=== PATIENT | female | born 1960 | race Caucasian/White ===

== ENCOUNTER 2018-12-31 05:21 | Inpatient (IN) | payer OTHER ==
[2018-12-31] MEDS ORDERED: CLINDAMYCIN 900 MG/D5W (PMX) 50 ML IVPB (06:30)
[2018-12-31] MEDS ORDERED: ROCURONIUM 50 MG INJ (06:30)
[2018-12-31] MEDS ORDERED: LIDOCAINE 2% (SDV) 5 ML INJ (06:30)
[2018-12-31] MEDS ORDERED: HYDROmorphONE 2 MG/ML SYG (06:30)
[2018-12-31] MEDS ORDERED: PROPOFOL 20 ML ×2 (06:30→07:47)
[2018-12-31] MEDS ORDERED: MIDAZOLAM 1 MG/ML 2 ML INJ (06:30)
[2018-12-31] MEDS: SOD CHLORIDE 0.9% 1,000 ML IV (06:40)
[2018-12-31] MEDS ORDERED: DESFLURANE 15 MIN (07:15)
[2018-12-31] MEDS ORDERED: LIDOCAINE 4% (MPF) 5 ML INJ (07:17)
[2018-12-31] MEDS ORDERED: METOCLOPRAMIDE 10 MG INJ (07:39)
[2018-12-31] MEDS ORDERED: DEXAMETHASONE 4 MG/ML 5 ML INJ (07:39)
[2018-12-31] MEDS ORDERED: FAMOTIDINE 20 MG INJ (07:39)
[2018-12-31] MEDS ORDERED: ONDANSETRON 4 MG INJ (07:39)
[2018-12-31] MEDS ORDERED: MAGNESIUM SULFATE 1 GM/D5W 100 ML (07:46)
[2018-12-31] MEDS ORDERED: LABETALOL HCL 20MG INJ IV (08:30)
[2018-12-31] MEDS ORDERED: MEPERIDINE 25 MG INJ IV (08:30)
[2018-12-31] MEDS ORDERED: hydrALAzine 20 MG INJ IV (08:30)
[2018-12-31] MEDS ORDERED: ONDANSETRON 4 MG INJ IV ×2 (08:30→09:30)
[2018-12-31] MEDS ORDERED: NALOXONE (0.4 MG/ML) INJ IV (08:30)
[2018-12-31] MEDS ORDERED: ACETAMINOPHEN 500 MG TAB PO (08:30)
[2018-12-31] MEDS ORDERED: SUGAMMADEX SODIUM 200 MG/2 ML VIAL IV (08:35)
[2018-12-31] MEDS ORDERED: KETOROLAC 30 MG INJ (08:36)
[2018-12-31] MEDS: HYDROmorphONE 0.2 MG/ML PCA IV (09:27)
[2018-12-31] MEDS ORDERED: HYDROmorphONE 1 MG/5 ML IV SYRINGE IV ×4 (09:30→10:00)
[2018-12-31] MEDS: LACTATED RINGER'S 1,000 ML IV (10:09)
[2018-12-31] MEDS: METOCLOPRAMIDE 10 MG INJ IV (10:11)
[2018-12-31] MEDS: DEXTROSE 5%-LR 1,000 ML IV ×2 (11:08→18:53)
[2018-12-31] MEDS ORDERED: GLUCOSE GEL 15 GRAM TUBE PO ×2 (12:30)
[2018-12-31] MEDS ORDERED: DEXTROSE 50% 50 ML SYRINGE IV ×2 (12:30)
[2018-12-31] MEDS ORDERED: GLUCOSE GEL 15 GRAM TUBE BUCCAL (12:30)
[2018-12-31] MEDS ORDERED: GLUCAGON 1 MG INJ IM (12:30)
[2018-12-31] MEDS: INSULIN ASPART [NOVOLOG] 3 ML PEN SC ×3 (15:07→20:51)
[2019-01-01] MEDS: INSULIN ASPART [NOVOLOG] 3 ML PEN SC ×6 (00:58→21:00)
[2019-01-01] MEDS ORDERED: ACCU-CHEK XX (02:00)
[2019-01-01] MEDS: DEXTROSE 5%-LR 1,000 ML IV ×3 (03:31→21:52)
[2019-01-01] MEDS: BISACODYL 10 MG SUPP PR ×2 (05:25→17:33)
[2019-01-01] MEDS: MAGNESIUM HYDROXIDE 30ML CUP PO ×2 (05:25→17:33)
[2019-01-01 05:40] LABS: ADD MAN DIFF? NO
[2019-01-01 05:47] LABS: BASOPHILS % 0.1 % (0.0-2.0); HEMATOCRIT 34.4 % (37.0-47.0); LYMPHOCYTES # 0.7 10^3/ul (0.8-2.9); LYMPHOCYTES % 6.2 % (15.0-51.0); MEAN CORPUSCULAR HEMOGLOBIN 27.6 pg (29.0-33.0); MEAN CORPUSCULAR VOLUME 86.4 fl (82.0-101.0); MEAN PLATELET VOLUME 10.8 fl (7.4-10.4); MONOCYTE # 0.8 10^3/ul (0.3-0.9); MONOCYTES % 6.6 % (0.0-11.0); NEUTROPHIL # 10.5 10^3/ul (1.6-7.5); NEUTROPHILS % 86.8 % (39.0-77.0); PLATELET COUNT 224 10^3/UL (140-415); RED BLOOD COUNT 3.98 10^6/ul (4.20-5.40); RED CELL DISTRIBUTION WIDTH 14.2 % (11.5-14.5)
[2019-01-01 06:36] LABS: ALANINE AMINOTRANSFERASE 22 IU/L (13-69); ALBUMIN 3.4 g/dl (3.3-4.9); ALBUMIN/GLOBULIN RATIO 1.17; ALKALINE PHOSPHATASE 71 IU/L (42-121); ANION GAP 9 (5-13); ASPARTATE AMINO TRANSFERASE 19 IU/L (15-46); BILIRUBIN,INDIRECT 0.5 mg/dl (0-1.1); BILIRUBIN,TOTAL 0.5 mg/dl (0.2-1.3); BLOOD UREA NITROGEN 11 mg/dl (7-20); CALCIUM 8.8 mg/dl (8.4-10.2); CARBON DIOXIDE 26 mmol/L (21-31); CHLORIDE 106 mmol/L (97-110); CREATININE 0.74 mg/dl (0.44-1.00); Estimated GFR > 60 mL/min (>60); GLUCOSE 159 mg/dl (70-220); POTASSIUM 4.8 mmol/L (3.5-5.1); SODIUM 141 mmol/L (135-144); TOTAL PROTEIN 6.3 g/dl (6.1-8.1)
[2019-01-01] MEDS ORDERED: HYDROmorphONE 0.5 MG/0.5 ML SYG IV (08:30)
[2019-01-01] MEDS ORDERED: LACTULOSE 30ML CUP PO (13:00)
[2019-01-01] MEDS: OXYCODONE/ACETAMINOPHEN (5/325) TAB PO ×2 (15:07→20:52)
[2019-01-01] MEDS ORDERED: IBUPROFEN 800 MG TAB PO (18:00)
[2019-01-02] MEDS: INSULIN ASPART [NOVOLOG] 3 ML PEN SC ×5 (01:00→20:19)
[2019-01-02] MEDS: OXYCODONE/ACETAMINOPHEN (5/325) TAB PO ×4 (02:34→17:48)
[2019-01-02 05:15] LABS: ADD MAN DIFF? NO
[2019-01-02 05:23] LABS: BASOPHILS % 0.3 % (0.0-2.0); EOSINOPHILS # 0.1 10^3/ul (0.0-0.5); EOSINOPHILS % 0.8 % (0.0-7.0); HEMATOCRIT 32.8 % (37.0-47.0); HEMOGLOBIN 10.2 g/dl (12.0-16.0); LYMPHOCYTES # 1.6 10^3/ul (0.8-2.9); LYMPHOCYTES % 13.4 % (15.0-51.0); MEAN CORPUSCULAR HEMOGLOBIN 27.9 pg (29.0-33.0); MEAN CORPUSCULAR HGB CONC 31.1 g/dl (32.0-37.0); MEAN CORPUSCULAR VOLUME 89.9 fl (82.0-101.0); MEAN PLATELET VOLUME 10.6 fl (7.4-10.4); MONOCYTE # 1.1 10^3/ul (0.3-0.9); MONOCYTES % 9.4 % (0.0-11.0); NEUTROPHIL # 9.1 10^3/ul (1.6-7.5); NEUTROPHILS % 75.7 % (39.0-77.0); PLATELET COUNT 184 10^3/UL (140-415); RED BLOOD COUNT 3.65 10^6/ul (4.20-5.40); RED CELL DISTRIBUTION WIDTH 14.3 % (11.5-14.5)
[2019-01-02] MEDS: DEXTROSE 5%-LR 1,000 ML IV ×2 (05:56→12:59)
[2019-01-02] MEDS: MAGNESIUM HYDROXIDE 30ML CUP PO (08:17)
[2019-01-02] MEDS: BISACODYL 10 MG SUPP PR (08:17)
[2019-01-02] MEDS: hydrALAzine 20 MG INJ IV (08:18)
[2019-01-02] MEDS: METOPROLOL 25 MG TAB PO ×2 (08:59→20:16)
[2019-01-02] MEDS: LOSARTAN 50 MG TAB PO (09:00)
== END 2019-01-02 20:54 | disposition home or self-care (01) | DRG 743 ==
LOC: REC 05:21 → MS1 10:34
PROVIDERS: Obstetrics & Gynecology
PROC: 0UT90ZZ Resection of Uterus, Open Approach (ICD-10-PCS; principal; 2018-12-31 07:20)
PROC: 0UT20ZZ Resection of Bilateral Ovaries, Open Approach (ICD-10-PCS; 2018-12-31 07:20)
PROC: 0USG0ZZ Reposition Vagina, Open Approach (ICD-10-PCS; 2018-12-31 07:20)
DX: N81.89 Other female genital prolapse (principal); E11.42 Type 2 diabetes mellitus with diabetic polyneuropathy; N81.2 Incomplete uterovaginal prolapse; I10 Essential (primary) hypertension; E78.5 Hyperlipidemia, unspecified; E11.9 Type 2 diabetes mellitus without complications; K21.9 Gastro-esophageal reflux disease without esophagitis; D25.1 Intramural leiomyoma of uterus; D25.2 Subserosal leiomyoma of uterus; Z79.4 Long term (current) use of insulin
CPT/HCPCS: 80053; 82962; 84702; 85025; 86850; 86900; 86901; 87086; 88307

== ENCOUNTER 2019-01-05 16:46 | Inpatient (IN) | payer OTHER ==
[2019-01-05 17:20] LABS: ADD MAN DIFF? NO
[2019-01-05] MEDS: SODIUM CHLORIDE 0.9% 1L BAG IV* (17:23)
[2019-01-05] MEDS: LEVOFLOXACIN 500MG/D5W (PMX) 100 ML IVPB (17:24)
[2019-01-05 17:26] LABS: WHITE BLOOD COUNT 21.6 10^3/ul (4.8-10.8)
[2019-01-05 17:26] LABS: ABNORMAL IP MESSAGE 1; BASOPHIL # 0.1 10^3/ul (0.0-0.1); BASOPHILS % 0.2 % (0.0-2.0); EOSINOPHILS # 0.2 10^3/ul (0.0-0.5); EOSINOPHILS % 0.7 % (0.0-7.0); HEMOGLOBIN 11.8 g/dl (12.0-16.0); LYMPHOCYTES # 1.4 10^3/ul (0.8-2.9); LYMPHOCYTES % 6.7 % (15.0-51.0); MEAN CORPUSCULAR HEMOGLOBIN 28.2 pg (29.0-33.0); MEAN CORPUSCULAR HGB CONC 31.9 g/dl (32.0-37.0); MEAN CORPUSCULAR VOLUME 88.3 fl (82.0-101.0); MEAN PLATELET VOLUME 10.9 fl (7.4-10.4); MONOCYTE # 1.7 10^3/ul (0.3-0.9); MONOCYTES % 7.7 % (0.0-11.0); NEUTROPHIL # 18.2 10^3/ul (1.6-7.5); NEUTROPHILS % 83.9 % (39.0-77.0); PLATELET COUNT 345 10^3/UL (140-415); RED BLOOD COUNT 4.19 10^6/ul (4.20-5.40); RED CELL DISTRIBUTION WIDTH 14.5 % (11.5-14.5)
[2019-01-05 17:32] LABS: POSITIVE DIFF @See below
[2019-01-05 17:34] LABS: ADD UMIC YES; UR ASCORBIC ACID NEGATIVE (NEGATIVE); UR BACTERIA FEW /HPF (NONE SEEN); UR BILIRUBIN (Dip) NEGATIVE (NEGATIVE); UR BLOOD (Dip) 1+ mg/dL (NEGATIVE); UR CLARITY CLEAR (CLEAR); UR COLOR AMBER (YELLOW); UR GLUCOSE (Dip) NEGATIVE (NEGATIVE); UR KETONES (Dip) NEGATIVE (NEGATIVE); UR LEUKOCYTE ESTERASE (Dip) NEGATIVE Leu/ul (NEGATIVE); UR MUCUS FEW /HPF (NONE SEEN); UR NITRITE (Dip) NEGATIVE (NEGATIVE); UR RBC 4 /HPF (0-5); UR SPECIFIC GRAVITY (Dip) 1.028 (1.003-1.030); UR SQUAMOUS EPITHELIAL CELL FEW /HPF (FEW); UR TOTAL PROTEIN (Dip) 1+ mg/dl (NEGATIVE); UR UROBILINOGEN (Dip) NEGATIVE (NEGATIVE); UR WBC 3 /HPF (0-5)
[2019-01-05 17:45] LABS: ALANINE AMINOTRANSFERASE 20 IU/L (13-69); ALBUMIN 3.7 g/dl (3.3-4.9); ALBUMIN/GLOBULIN RATIO 0.94; ALKALINE PHOSPHATASE 184 IU/L (42-121); ANION GAP 13 (5-13); ASPARTATE AMINO TRANSFERASE 27 IU/L (15-46); BILIRUBIN,INDIRECT 0.9 mg/dl (0-1.1); BILIRUBIN,TOTAL 0.9 mg/dl (0.2-1.3); BLOOD UREA NITROGEN 16 mg/dl (7-20); CARBON DIOXIDE 24 mmol/L (21-31); CHLORIDE 102 mmol/L (97-110); CREATININE 0.89 mg/dl (0.44-1.00); Estimated GFR > 60 mL/min (>60); GLUCOSE 164 mg/dl (70-220); POTASSIUM 3.4 mmol/L (3.5-5.1); SODIUM 139 mmol/L (135-144); TOTAL PROTEIN 7.6 g/dl (6.1-8.1)
[2019-01-05 17:50] LABS: INR 1.14; PROTIME 14.7 Sec (11.9-14.9); PT RATIO 1.1
[2019-01-05] MEDS: ACETAMINOPHEN 325 MG TAB PO (17:53)
[2019-01-05 17:56] LABS: TROPONIN-I < 0.012 ng/ml (0.000-0.120)
[2019-01-05] MEDS: metroNIDAZOLE 500 MG/NS (PMX) 100 ML IVPB (18:10)
[2019-01-05 18:12] LABS: D-DIMER 5604.74 ng/ml (<460)
[2019-01-05] MEDS: IOHEXOL 300MG/ML 30 ML BTL (18:36)
[2019-01-05] MEDS: VANCOMYCIN 1 GM (PMX) 250 ML IVPB (19:00)
[2019-01-05] MEDS: IOHEXOL 300MG/ML 150 ML BTL (19:11)
[2019-01-05] MEDS: SOD CHLORIDE 0.9% 100 ML (19:11)
[2019-01-05] MEDS: LEVOFLOXACIN 250MG/D5W (PMX) 50 ML IVPB (19:30)
[2019-01-05] MEDS ORDERED: ONDANSETRON 4 MG INJ IV ×2 (19:30→22:00)
[2019-01-05 20:04] LABS: LIPASE 49 U/L (23-300)
[2019-01-05] MEDS: KETOROLAC 15 MG INJ IV (21:04)
[2019-01-05 21:58] LABS: LACTIC ACID 1.2 mmol/L (0.5-2.0)
[2019-01-05] MEDS ORDERED: NACL 0.9% 3 ML SYG IV (22:00)
[2019-01-05] MEDS ORDERED: DOCUSATE SODIUM 100 MG CAP PO (22:00)
[2019-01-05] MEDS ORDERED: VANCOMYCIN IV PER PHARMACY XX (22:00)
[2019-01-05] MEDS ORDERED: DEXTROSE 50% 50 ML SYRINGE IV ×2 (22:30)
[2019-01-05] MEDS ORDERED: GLUCOSE GEL 15 GRAM TUBE BUCCAL (22:30)
[2019-01-05] MEDS ORDERED: GLUCAGON 1 MG INJ IM (22:30)
[2019-01-05] MEDS ORDERED: GLUCOSE GEL 15 GRAM TUBE PO ×2 (22:30)
[2019-01-05] MEDS: SOD CHLORIDE 0.9% 500 ML IV (22:36)
[2019-01-05] MEDS: MEROPENEM 1 GM/50ML(PMX) 50 ML IVPB (22:36)
[2019-01-05] MEDS: SOD CHLORIDE 0.9% 1,000 ML IV (22:36)
[2019-01-06] MEDS: VANCOMYCIN 1 GM 250 ML IVPB ×2 (01:00→12:09)
[2019-01-06] MEDS: ACCU-CHEK XX (02:00)
[2019-01-06] MEDS: ACETAMINOPHEN 325 MG TAB PO ×2 (02:37→19:05)
[2019-01-06] MEDS: PANTOPRAZOLE (EC) 40 MG TAB PO (05:49)
[2019-01-06 05:51] LABS: ADD MAN DIFF? NO
[2019-01-06 05:58] LABS: BASOPHILS % 0.2 % (0.0-2.0); EOSINOPHILS # 0.2 10^3/ul (0.0-0.5); EOSINOPHILS % 1.5 % (0.0-7.0); HEMATOCRIT 28.9 % (37.0-47.0); LYMPHOCYTES # 1.1 10^3/ul (0.8-2.9); LYMPHOCYTES % 9.9 % (15.0-51.0); MEAN CORPUSCULAR HEMOGLOBIN 27.1 pg (29.0-33.0); MEAN CORPUSCULAR HGB CONC 31.1 g/dl (32.0-37.0); MEAN PLATELET VOLUME 10.6 fl (7.4-10.4); MONOCYTES % 9.2 % (0.0-11.0); NEUTROPHIL # 8.6 10^3/ul (1.6-7.5); NEUTROPHILS % 78.3 % (39.0-77.0); PLATELET COUNT 190 10^3/UL (140-415); RED BLOOD COUNT 3.32 10^6/ul (4.20-5.40); RED CELL DISTRIBUTION WIDTH 14.6 % (11.5-14.5)
[2019-01-06 06:45] LABS: ALANINE AMINOTRANSFERASE 26 IU/L (13-69); ALBUMIN 2.6 g/dl (3.3-4.9); ALBUMIN/GLOBULIN RATIO 0.86; ALKALINE PHOSPHATASE 123 IU/L (42-121); ANION GAP 9 (5-13); ASPARTATE AMINO TRANSFERASE 12 IU/L (15-46); BILIRUBIN,INDIRECT 0.5 mg/dl (0-1.1); BILIRUBIN,TOTAL 0.5 mg/dl (0.2-1.3); BLOOD UREA NITROGEN 13 mg/dl (7-20); CARBON DIOXIDE 25 mmol/L (21-31); CHLORIDE 107 mmol/L (97-110); Estimated GFR > 60 mL/min (>60); GLUCOSE 103 mg/dl (70-220); MAGNESIUM 1.9 mg/dl (1.7-2.5); SODIUM 141 mmol/L (135-144); TOTAL PROTEIN 5.6 g/dl (6.1-8.1)
[2019-01-06 07:25] LABS: HEMOGLOBIN A1C 5.6 % (0-5.9)
[2019-01-06] MEDS: INSULIN ASPART [NOVOLOG] 3 ML PEN SC ×4 (08:00→21:00)
[2019-01-06] MEDS: MEROPENEM 1 GM/50ML(PMX) 50 ML IVPB ×2 (08:06→21:23)
[2019-01-06] MEDS: SOD CHLORIDE 0.9% 1,000 ML IV ×2 (08:06→17:34)
[2019-01-06] MEDS ORDERED: KETOROLAC 30 MG INJ IV (11:00)
[2019-01-06] MEDS: POTASSIUM CHLORIDE (SR) 20 MEQ TAB PO (12:09)
[2019-01-06] MEDS: METOPROLOL 25 MG TAB PO ×2 (12:10→21:23)
[2019-01-06] MEDS: ASPIRIN (EC) 81 MG TAB PO (12:10)
[2019-01-06] MEDS: LOSARTAN 50 MG TAB PO (12:11)
[2019-01-06] MEDS: traMADol 50 MG TAB NGT (12:22)
[2019-01-06] MEDS: ATORVASTATIN 20 MG TAB PO (21:23)
[2019-01-07] MEDS: SOD CHLORIDE 0.9% 1,000 ML IV ×3 (00:42→17:44)
[2019-01-07] MEDS: VANCOMYCIN 1 GM 250 ML IVPB ×2 (00:42→12:13)
[2019-01-07] MEDS: ACCU-CHEK XX (02:00)
[2019-01-07 05:43] LABS: ADD MAN DIFF? NO
[2019-01-07 05:48] LABS: BASOPHILS % 0.2 % (0.0-2.0); EOSINOPHILS # 0.4 10^3/ul (0.0-0.5); EOSINOPHILS % 3.9 % (0.0-7.0); HEMATOCRIT 28.7 % (37.0-47.0); HEMOGLOBIN 9.1 g/dl (12.0-16.0); LYMPHOCYTES % 11.2 % (15.0-51.0); MEAN CORPUSCULAR HEMOGLOBIN 27.3 pg (29.0-33.0); MEAN CORPUSCULAR HGB CONC 31.7 g/dl (32.0-37.0); MEAN CORPUSCULAR VOLUME 86.2 fl (82.0-101.0); MEAN PLATELET VOLUME 10.3 fl (7.4-10.4); MONOCYTE # 0.7 10^3/ul (0.3-0.9); NEUTROPHIL # 6.8 10^3/ul (1.6-7.5); NEUTROPHILS % 75.8 % (39.0-77.0); PLATELET COUNT 210 10^3/UL (140-415); RED BLOOD COUNT 3.33 10^6/ul (4.20-5.40); RED CELL DISTRIBUTION WIDTH 14.6 % (11.5-14.5)
[2019-01-07 06:10] LABS: PHOSPHORUS 3.4 mg/dl (2.5-4.9)
[2019-01-07 06:16] LABS: ALANINE AMINOTRANSFERASE 22 IU/L (13-69); ALBUMIN 2.6 g/dl (3.3-4.9); ALBUMIN/GLOBULIN RATIO 0.89; ALKALINE PHOSPHATASE 106 IU/L (42-121); ANION GAP 7 (5-13); ASPARTATE AMINO TRANSFERASE 12 IU/L (15-46); BILIRUBIN,INDIRECT 0.5 mg/dl (0-1.1); BILIRUBIN,TOTAL 0.5 mg/dl (0.2-1.3); BLOOD UREA NITROGEN 8 mg/dl (7-20); CALCIUM 8.2 mg/dl (8.4-10.2); CARBON DIOXIDE 25 mmol/L (21-31); CHLORIDE 108 mmol/L (97-110); CREATININE 0.67 mg/dl (0.44-1.00); Estimated GFR > 60 mL/min (>60); GLUCOSE 103 mg/dl (70-220); POTASSIUM 3.2 mmol/L (3.5-5.1); SODIUM 140 mmol/L (135-144); TOTAL PROTEIN 5.5 g/dl (6.1-8.1)
[2019-01-07] MEDS: PANTOPRAZOLE (EC) 40 MG TAB PO (06:44)
[2019-01-07] MEDS: INSULIN ASPART [NOVOLOG] 3 ML PEN SC ×4 (07:40→20:51)
[2019-01-07] MEDS: ACETAMINOPHEN 325 MG TAB PO (08:10)
[2019-01-07] MEDS: MEROPENEM 1 GM/50ML(PMX) 50 ML IVPB ×2 (08:12→20:46)
[2019-01-07] MEDS: METOPROLOL 25 MG TAB PO ×2 (08:14→20:46)
[2019-01-07] MEDS: ASPIRIN (EC) 81 MG TAB PO (08:14)
[2019-01-07] MEDS: LOSARTAN 50 MG TAB PO (08:15)
[2019-01-07] MEDS: POTASSIUM CHLORIDE (SR) 20 MEQ TAB PO (11:39)
[2019-01-07 11:47] LABS: VANCOMYCIN,TROUGH 7.5 ug/ml (10.0-20.0)
[2019-01-07] MEDS: IBUPROFEN 400 MG TAB PO ×2 (13:33→19:01)
[2019-01-07] MEDS: hydrALAzine 20 MG INJ IV (18:59)
[2019-01-07] MEDS: ATORVASTATIN 20 MG TAB PO (20:45)
[2019-01-07] MEDS ORDERED: VANCOMYCIN HCL 1.25 GM in SOD CHLORIDE 0.9% 250 ML IVPB (21:00)
[2019-01-08] MEDS: ACCU-CHEK XX (02:00)
[2019-01-08] MEDS: hydrALAzine 20 MG INJ IV ×2 (02:19→14:45)
[2019-01-08] MEDS: IBUPROFEN 400 MG TAB PO ×3 (04:07→17:26)
[2019-01-08 05:48] LABS: ADD MAN DIFF? NO
[2019-01-08 05:52] LABS: BASOPHILS % 0.5 % (0.0-2.0); EOSINOPHILS # 0.3 10^3/ul (0.0-0.5); EOSINOPHILS % 4.3 % (0.0-7.0); HEMATOCRIT 30.1 % (37.0-47.0); HEMOGLOBIN 9.6 g/dl (12.0-16.0); LYMPHOCYTES # 0.8 10^3/ul (0.8-2.9); LYMPHOCYTES % 13.4 % (15.0-51.0); MEAN CORPUSCULAR HEMOGLOBIN 27.5 pg (29.0-33.0); MEAN CORPUSCULAR HGB CONC 31.9 g/dl (32.0-37.0); MEAN CORPUSCULAR VOLUME 86.2 fl (82.0-101.0); MEAN PLATELET VOLUME 10.4 fl (7.4-10.4); MONOCYTE # 0.5 10^3/ul (0.3-0.9); MONOCYTES % 8.6 % (0.0-11.0); NEUTROPHIL # 4.5 10^3/ul (1.6-7.5); PLATELET COUNT 228 10^3/UL (140-415); RED BLOOD COUNT 3.49 10^6/ul (4.20-5.40); RED CELL DISTRIBUTION WIDTH 14.5 % (11.5-14.5)
[2019-01-08 05:52] LABS: WHITE BLOOD COUNT 6.3 10^3/ul (4.8-10.8)
[2019-01-08] MEDS: PANTOPRAZOLE (EC) 40 MG TAB PO (05:57)
[2019-01-08 06:48] LABS: ALANINE AMINOTRANSFERASE 21 IU/L (13-69); ALBUMIN 2.7 g/dl (3.3-4.9); ALBUMIN/GLOBULIN RATIO 0.81; ALKALINE PHOSPHATASE 132 IU/L (42-121); ANION GAP 9 (5-13); ASPARTATE AMINO TRANSFERASE 16 IU/L (15-46); BILIRUBIN,INDIRECT 0.4 mg/dl (0-1.1); BILIRUBIN,TOTAL 0.4 mg/dl (0.2-1.3); BLOOD UREA NITROGEN 9 mg/dl (7-20); CALCIUM 8.2 mg/dl (8.4-10.2); CARBON DIOXIDE 24 mmol/L (21-31); CHLORIDE 111 mmol/L (97-110); CREATININE 0.64 mg/dl (0.44-1.00); Estimated GFR > 60 mL/min (>60); GLUCOSE 119 mg/dl (70-220); POTASSIUM 3.1 mmol/L (3.5-5.1); SODIUM 144 mmol/L (135-144)
[2019-01-08] MEDS: INSULIN ASPART [NOVOLOG] 3 ML PEN SC ×4 (08:00→20:26)
[2019-01-08] MEDS: ASPIRIN (EC) 81 MG TAB PO (08:04)
[2019-01-08] MEDS: METOPROLOL 25 MG TAB PO ×2 (08:05→20:19)
[2019-01-08] MEDS: LOSARTAN 50 MG TAB PO ×2 (08:05→20:19)
[2019-01-08] MEDS: MEROPENEM 1 GM/50ML(PMX) 50 ML IVPB ×2 (08:49→20:20)
[2019-01-08] MEDS: SOD CHLORIDE 0.9% 1,000 ML IV (10:20)
[2019-01-08] MEDS: IOHEXOL 300MG/ML 150 ML BTL (10:22)
[2019-01-08] MEDS: SOD CHLORIDE 0.9% 100 ML (10:22)
[2019-01-08] MEDS: POTASSIUM CHLORIDE (SR) 20 MEQ TAB PO (11:18)
[2019-01-08] MEDS: ACETAMINOPHEN 325 MG TAB PO (12:59)
[2019-01-08] MEDS: ATORVASTATIN 20 MG TAB PO (20:18)
[2019-01-08] MEDS: ZOLPIDEM 5 MG TAB PO (22:12)
[2019-01-09] MEDS: ACCU-CHEK XX (01:23)
[2019-01-09] MEDS: IBUPROFEN 400 MG TAB PO ×2 (02:50→09:18)
[2019-01-09 05:03] LABS: ADD MAN DIFF? NO
[2019-01-09 05:08] LABS: WHITE BLOOD COUNT 5.9 10^3/ul (4.8-10.8)
[2019-01-09 05:08] LABS: BASOPHILS % 0.5 % (0.0-2.0); EOSINOPHILS # 0.2 10^3/ul (0.0-0.5); EOSINOPHILS % 3.2 % (0.0-7.0); HEMATOCRIT 29.7 % (37.0-47.0); HEMOGLOBIN 9.6 g/dl (12.0-16.0); LYMPHOCYTES # 0.9 10^3/ul (0.8-2.9); LYMPHOCYTES % 15.7 % (15.0-51.0); MEAN CORPUSCULAR HEMOGLOBIN 27.4 pg (29.0-33.0); MEAN CORPUSCULAR HGB CONC 32.3 g/dl (32.0-37.0); MEAN CORPUSCULAR VOLUME 84.9 fl (82.0-101.0); MEAN PLATELET VOLUME 10.3 fl (7.4-10.4); MONOCYTE # 0.6 10^3/ul (0.3-0.9); MONOCYTES % 10.3 % (0.0-11.0); NEUTROPHILS % 67.8 % (39.0-77.0); PLATELET COUNT 265 10^3/UL (140-415); RED CELL DISTRIBUTION WIDTH 14.6 % (11.5-14.5)
[2019-01-09 05:26] LABS: MAGNESIUM 1.9 mg/dl (1.7-2.5)
[2019-01-09 05:26] LABS: PHOSPHORUS 3.9 mg/dl (2.5-4.9)
[2019-01-09 05:27] LABS: ALANINE AMINOTRANSFERASE 24 IU/L (13-69); ALBUMIN 2.7 g/dl (3.3-4.9); ALBUMIN/GLOBULIN RATIO 0.84; ALKALINE PHOSPHATASE 110 IU/L (42-121); ANION GAP 7 (5-13); ASPARTATE AMINO TRANSFERASE 16 IU/L (15-46); BILIRUBIN,INDIRECT 0.4 mg/dl (0-1.1); BILIRUBIN,TOTAL 0.4 mg/dl (0.2-1.3); BLOOD UREA NITROGEN 8 mg/dl (7-20); CALCIUM 8.2 mg/dl (8.4-10.2); CARBON DIOXIDE 26 mmol/L (21-31); CHLORIDE 108 mmol/L (97-110); CREATININE 0.66 mg/dl (0.44-1.00); Estimated GFR > 60 mL/min (>60); GLUCOSE 119 mg/dl (70-220); POTASSIUM 3.4 mmol/L (3.5-5.1); SODIUM 141 mmol/L (135-144); TOTAL PROTEIN 5.9 g/dl (6.1-8.1)
[2019-01-09] MEDS: PANTOPRAZOLE (EC) 40 MG TAB PO (05:36)
[2019-01-09] MEDS: INSULIN ASPART [NOVOLOG] 3 ML PEN SC ×2 (08:00→12:00)
[2019-01-09] MEDS: MEROPENEM 1 GM/50ML(PMX) 50 ML IVPB (08:39)
[2019-01-09] MEDS: ASPIRIN (EC) 81 MG TAB PO (08:40)
[2019-01-09] MEDS: LOSARTAN 50 MG TAB PO (08:40)
[2019-01-09] MEDS: METOPROLOL 25 MG TAB PO (08:40)
[2019-01-09] MEDS: POTASSIUM CHLORIDE (SR) 20 MEQ TAB PO (12:17)
== END 2019-01-09 14:15 | disposition home or self-care (01) | DRG 862 ==
LOC: E/R 16:46 → 6WM 19:05 → 2NE 01-07 18:25
PROVIDERS: Internal Medicine
DX: T81.49XA Infection following a procedure, other surgical site, initial encounter (principal); A41.9 Sepsis, unspecified organism; R65.21 Severe sepsis with septic shock; N39.0 Urinary tract infection, site not specified; T81.44XA Sepsis following a procedure, initial encounter; E87.6 Hypokalemia; K80.20 Calculus of gallbladder without cholecystitis without obstruction; N73.9 Female pelvic inflammatory disease, unspecified; I10 Essential (primary) hypertension; E78.5 Hyperlipidemia, unspecified; E11.42 Type 2 diabetes mellitus with diabetic polyneuropathy; E66.9 Obesity, unspecified; K44.9 Diaphragmatic hernia without obstruction or gangrene; K21.9 Gastro-esophageal reflux disease without esophagitis; Z79.84 Long term (current) use of oral hypoglycemic drugs; Z79.82 Long term (current) use of aspirin; Z88.0 Allergy status to penicillin; Z90.710 Acquired absence of both cervix and uterus; Z90.722 Acquired absence of ovaries, bilateral; Z90.79 Acquired absence of other genital organ(s)
CPT/HCPCS: 36415; 71045; 71046; 71275; 74177; 74178; 76705; 80053; 80202; 81001; 82962; 83036; 83605; 83690; 83735; 84100; 84484; 85025; 85378; 85610; 85730; 87040-91; 87086; 93005; 96374; 96375; 99285-25